=== PATIENT | male | born 1990 | race Caucasian/White ===

== ENCOUNTER → 2019-08-16 | Outpatient (CLI) | payer BC ==
--- NOTE | 2019-08-17 08:37 | CT ---
EXAMINATION TYPE: CT soft tissue neck w con DATE OF EXAM: 08/16/2019 COMPARISON: None HISTORY: lump on right side of neck CT DLP: 306.5 mGycm CONTRAST: Patient injected with 100 mL of Isovue 300. TECHNIQUE: Axial images at 3 mm thick sections. Reconstructed images in the coronal plane and sagitt al plane are reviewed. FINDINGS: Limited CT sections are obtained the lung apices. The lung apices appear clear. CT neck: The torus tubarius and fossa of Rosenmuller are normal. Laboratory Tester spaces are normal. Para nasal sinuses and mastoid air cells are clear. Parotid glands appear normal and symmetrical. Submandibular glands, are normal. Parapharyngeal spac es are normal. No suspicious adenopathy is evident. At the level marked by the BB in the posterior lateral right neck there is a 1.9 x 1.0 cm slightly hy podense area in the subcutaneous tissues. A 7 cutaneous cyst or sebaceous cyst should be considered. This measures approximately 19 Hounsfield units. Lymphocele would be less likely. This is not a typic al lymph node. No suspicious adenopathy is elsewhere within the neck. The hypopharynx appears within normal limits. Vocal cord level appear symmetrical. Thyroid as visualized is normal. Osseous structures are normal. IMPRESSIONS: 1. Cystlike area at the palpable abnormality within the posterior lateral right neck. Ultrasound coul d be performed for additional evaluation.
== END | disposition home or self-care (01) ==
LOC: RADCTMAIN 17:16
PROVIDERS: ATTEND Family Medicine
DX: R22.1 Localized swelling, mass and lump, neck (principal)
CPT/HCPCS: 70491; Q9967

== ENCOUNTER → 2020-07-17 | Outpatient (CLI) | payer BC | END | disposition home or self-care (01) | LOC: LABWHC1 09:59 | PROVIDERS: ATTEND Physician Assistant | DX: Z20.828 Contact with and (suspected) exposure to other viral communicable diseases (principal) | CPT/HCPCS: U0003; C9803 ==